=== PATIENT | female | born 1950 | race Caucasian/White ===

== ENCOUNTER → 2017-06-12 16:42 | Outpatient (CLI) | payer BC ==
[2012-01-30 10:15] VITALS: BMI 44.3
== END | disposition home or self-care (01) ==
LOC: D.LABREF 16:42
DX: M17.12 Unilateral primary osteoarthritis, left knee (principal); Z11.8 Encounter for screening for other infectious and parasitic diseases

== ENCOUNTER 2017-07-09 10:00 | Inpatient (IN) | payer MEDICARE, BC ==
[~2017-07-09 10:00] MED LIST: CELEXA20 MG PO; DETROL1 MG PO; DETROL2 MG PO; FUROSEMIDE20 MG PO; ZYRTEC10 MG PO
[2017-07-09] MEDS ORDERED: DETROL2 MG PO (11:08)
[2017-07-09 11:56] LABS: BASOPHILS 0.3 % (0-2); EOSINOPHILS 2.5 % (0-7); HEMATOCRIT 42.5 % (36.0-48.0); HEMOGLOBIN 14.1 g/dL (12-16); IMMATURE GRANULOCYTES 0.3 % (0-5); LYMPHOCYTES 25.8 % (15-50); MCH 30.9 pg (26.0-34.0); MCHC 33.2 g/dL (31.0-37.0); MEAN PLATELET VOLUME 11.1 fL (7.4-10.4); MONOCYTES 9.9 % (2-11); NEUTROPHILS 61.2 % (40-80); PLATELET COUNT 257 10x3/uL (130-400); RBC 4.57 10x6/uL (4.00-5.40); RDW 13.8 % (11.5-14.5); WBC 7.7 10x3/uL (4.8-10.8)
[2017-07-09 12:03] LABS: APPEARANCE CLEAR (CLEAR); BILIRUBIN NEGATIVE (NEGATIVE); COLOR YELLOW (YELLOW); GLUCOSE NEGATIVE (NEGATIVE); KETONE NEGATIVE (NEGATIVE); NITRITE NEGATIVE (NEGATIVE); PROTEIN NEGATIVE (NEGATIVE); UROBILINOGEN NORMAL (NORMAL)
[2017-07-09 12:07] LABS: BACTERIA FEW /hpf (NONE SEEN); WHITE CELLS - URINE OCC /hpf (0-5)
[2017-07-09 12:10] LABS: ANION GAP 10.1 mmol/L (8-16); CALCIUM 9.5 mg/dL (8.5-10.1); CARBON DIOXIDE 31.1 mmol/L (21.0-32.0); CREATININE - SERUM 0.9 mg/dL (0.6-1.3); POTASSIUM - SERUM 5.2 mmol/L (3.5-5.1)
[2017-07-09 12:18] LABS: APTT 28.2 SECONDS (22.8-39.4)
[2017-07-14] VITALS (12 sets, daily range): BP systolic 128–167; BP diastolic 33–77; BMI 41.7
--- NOTE | 2017-07-14 08:40 | NUR ---
PT HAS FRESH SCRATCH THAT SHE STATES SHE GOT FROM A BOX NOTED TO LEFT LOWER LEG. DR CAVAZOS AWARE.
--- NOTE | 2017-07-14 10:33 | NUR ---
RECEIVED VIA BED FROM PACU. AROUSES TO VERBAL STIMULATION. DRESSING TO LEFT KNEE DRY AND INTACT. VSS. DENIES NEEDS.
--- NOTE | 2017-07-14 12:30 | NUR ---
REFUSED LUNCH AT THIS TIME. AT BEDSIDE.
--- NOTE | 2017-07-14 14:49 | OP ---
PATIENT NAME: TONY LARSON MEDICAL RECORD: [id number] :52 LOCATION:[id number] ADMISSION DATE:07/14/17 SURGEON: RADHA CAVAZOS MD DATE OF OPERATION: 07/14/2017 PREOPERATIVE DIAGNOSIS: Degenerative arthritis, left knee. POSTOPERATIVE DIAGNOSIS: Degenerative arthritis, left knee. PROCEDURE: Left total knee arthroplasty. SURGEON: Radha Cavazos MD ANESTHESIA: General. INTRAOPERATIVE COMPLICATIONS: None. SUMMARY OF PATHOLOGIC FINDINGS: The patient had extensive tricompartmental osteoarthritis consistent with the preoperative diagnosis. IMPLANTS USED: Gabe triathlon total knee arthroplasty, size 4 femoral component, 9 polyethylene component, 4 tibial component, 31 patellar component. OPERATIVE SUMMARY IN DETAIL: After obtaining the appropriate preoperative orthopedic surgery consent as well as anesthetic consultation, evaluation and clearance, the patient was brought to the operating room and placed on the operating table in supine position. After adequate general anesthesia was administered, the patient's left lower extremity was prepared with a tourniquet about the proximal aspect of the left lower extremity and prepped and draped in routine sterile fashion. The leg was elevated and exsanguinated, tourniquet inflated to 350 mmHg. Midline incision was taken down for a paramedian arthrotomy. Patella was everted, distal femur was exposed. Soft tissue excision was done in the usual fashion. Distal intramedullary guide hole was created for distal intramedullary guide and cut. This was followed by a proximal tibial cut using intramedullary guidance likewise. Gap balancing system was then utilized both in flexion and extension. Appropriate measurements were taken. Distal femoral cuts and chamfer cuts were made followed by placement of the trial components corresponding to the above-mentioned final components. The knee was taken through range of motion and found to be stable in all planes. Final distal femoral and proximal tibial preparations were made followed by excision of the patellar surface for resurfacing. Final patellar preparations were made. This was followed by pulsatile lavage irrigation of the entire knee cavity. Final components were cemented into place. All excess cement was removed. After the cement was allowed to harden, the knee was taken through range of motion and found to be stable in all planes. Having completed this, further irrigation was then followed by closure of the paramedian arthrotomy with #2 Ethibond followed by #1 Vicryl, 2-0 Vicryl and skin elvira. Sterile dressings were applied. The patient was awakened, taken to recovery room in stable condition. All final needle and sponge counts were correct. TRANSINT:[id number] Voice Confirmation ID: [id number] DOCUMENT ID: [id number] OPERATIVE REPORT [id number] TONY LARSON MD, RADHA PROCTOR at 1449 CC: [id number] DICTATION DATE: 07/14/17926 TEACHER ADVISOR: 07/14/[address] [facility] [address] [place] [address]
--- NOTE | 2017-07-14 15:00 | NUR ---
RESTING QUIETLY WITH EYES CLOSED. AT BEDSIDE. DENIES NEEDS.
--- NOTE | 2017-07-14 17:00 | NUR ---
ASSISTED WITH BED DELANEY. VOIDED 200 PLUS CC OF CLEAR YELLOW URINE. SKIN CARE PER STAFF. REPOSITIONED IN BED FOR COMFORT.
--- NOTE | 2017-07-14 18:15 | NUR ---
CPM PLACED TO LEFT KNEE. DENIES NEEDS. SOME FACIAL GRIMACING NOTED. GIVEN ONE PERCOCET PO FOR PAIN LEVEL 4. WILL MONITOR.
--- NOTE | 2017-07-14 23:59 | NUR ---
2000)REC'D. IN BED ON CPM MACHINE.ACEWRAP DRSG DRY AND INTACT.FOOT PINK/WARM/PEDAL PULSE PRESENT WITH 1+ EDEMA AROUND ANKLE.WIGGLES TOES AND DORSIFLEXES WILL CONTINUE TO MONITOR FOR ANY CHGES IN NEUROVASCULAR STATUS AND FOLLOW CURRENT PLAN OF CARE.
[2017-07-15 04:00] VITALS: BP 152/6; BP 153/62
[2017-07-15 05:29] LABS: HEMATOCRIT 37.6 % (36.0-48.0); HEMOGLOBIN 12.2 g/dL (12-16); MCH 30.9 pg (26.0-34.0); MCHC 32.4 g/dL (31.0-37.0); MCV 95.2 fL (80.0-100.0); MEAN PLATELET VOLUME 11.3 fL (7.4-10.4); RBC 3.95 10x6/uL (4.00-5.40); WBC 13.1 10x3/uL (4.8-10.8)
--- NOTE | 2017-07-15 07:57 | NUR ---
AWAKE AND ALERT.ORIENTED X3. C/O INCREASED PAIN TO LEFT KNEE THIS AM. WILL CHECK ON PRN. LUNGS ARE CLEAR BIALTERALLY, NO COUGH NOTED.REPORTED USED IS INSTRUCTED DURING PM. SKIN IS INTACT WITHOUT REDNESS EXCEPT INCISION TO LEFT KNEE WHICH HAS A DRY INTACT DRESSING IN PLACE. ON CPM AT THIS TIME. ASSISTED WITH BED DELANEY PER STAFF. VOIDED 300 CC CLEAR YELLOW URINE. SKIN CARE PER STAFF.
--- NOTE | 2017-07-15 08:06 | NUR ---
REQUESTED AND GIVEN ONE HYDROCONDONE PO FOR C/O LEFT KNEE PAIN LEVEL 8. WILL MONITOR.
[2017-07-15 08:32] VITALS: BP 131/52
--- NOTE | 2017-07-15 09:43 | NUR ---
Rehab Prescreening Consult recieved and the chart has been reviewed. A single TKA is not a qualifying inpatient rehab diagnosis without medical necessity. She is POD#1. Rehab will follow her progress for qualifying criteria. Discussed with Isabela Hart RN Clinical Liaison, Rehab
--- NOTE | 2017-07-15 10:00 | NUR ---
UP IN CHAIR AT BEDSIDE. DENIES NEEDS.
[2017-07-15 11:33] VITALS: BP 153/49
--- NOTE | 2017-07-15 12:00 | NUR ---
UP IN CHAIR AT BEDSIDE EATING LUNCH. DENIES NEEDS.
--- NOTE | 2017-07-15 12:40 | NUR ---
UP TO BSC WITH ONE PERSON ASSIST USING RW. VOIDED 300CC CLEAR YELLOW URINE. SKIN CARE PER STAFF. ASSISTED TO CHAIR AT BEDSIDE WHEN FINISHED. REQUESTED AND GIVNE ONE PERCOCET PO FOR C/O LEFT KNEE PAIN LEVEL 8. WILL MONITOR.
[2017-07-15 15:08] VITALS: BP 142/54
--- NOTE | 2017-07-15 15:14 | NUR ---
BACK TO BED PER PT. SISTER AT BEDSIDE. REPORTS PAIN EASED WITH USE OF PERCOCET. DENIES NEEDS.
--- NOTE | 2017-07-15 19:56 | NUR ---
ATE MOST OF SUPPER. RESTING QUIETLY DENIES NEEDS.
[2017-07-15 20:00] VITALS: BP 141/41
--- NOTE | 2017-07-15 22:25 | NUR ---
REC'D. IN CPM EYES CLOSED RESP. DEEP AND EVEN.ACEWRAP DRY AND INTACT TO LEFT LEG.IN CPM.WILL CONTINUE TO MONITOR FOR ANY CHGES. IN NEUROVASCULAR STATUS AND FOLLOW CURRENT PLAN OF CARE.
[2017-07-16] VITALS: BP 148/50
--- NOTE | 2017-07-16 04:59 | NUR ---
PATIENT RESTING IN BED WITH EYES CLOSED AND GUEST AT BEDSIDE. NO VISIBLE SIGNS OF DISTRESS. BED IN LOWEST POSITION AND CALL LIGHT WITHIN REACH.
[2017-07-16 05:11] LABS: HEMATOCRIT 36.8 % (36.0-48.0); HEMOGLOBIN 11.9 g/dL (12-16); MCH 30.6 pg (26.0-34.0); MCHC 32.3 g/dL (31.0-37.0); MCV 94.6 fL (80.0-100.0); MEAN PLATELET VOLUME 11.4 fL (7.4-10.4); RBC 3.89 10x6/uL (4.00-5.40); RDW 14.4 % (11.5-14.5); WBC 14.3 10x3/uL (4.8-10.8)
--- NOTE | 2017-07-16 07:45 | NUR ---
CPM ON AT THIS TIME AND OXYGEN ON 2L VIA NC. SPOUSE AT BEDSIDE. RESPIRATIONS EVEN AND NON LABORED. CALL LIGHT IN REACH, BED IN LOWEST POSITION WITH WHEELS LOCKED. WILL CONTINUE WITH PLAN OF CARE.
[2017-07-16 08:53] VITALS: BP 145/58
--- NOTE | 2017-07-16 09:13 | NUR ---
SCHEDULED MEDICATIONS ADMINISTERED AT THIS TIME. DENIES NEED FOR PAIN MEDICATION. BED ALARM ON AND CALL LIGHT IN REACH, WILL CONTINUE WITH PLAN OF CARE.
[2017-07-16 12:17] VITALS: BP 159/56
--- NOTE | 2017-07-16 13:04 | NUR ---
Patient Name: TONY LARSON Admission Status: Elective Accout number: [id number] Admission Date: 07-14-2017 : 1950 Admission Diagnosis: Attending: RADHA CAVAZOS Current LOS: 2 Anticipated DC Date: Planned Disposition: Home Primary Insurance: MEDICARE A & B Discharge Planning Comments: CM met with patient to assess discharge planning needs. Patient lives independently at home with her (Florentino)who will be the one to drive her home at discharge. Patient has a CPAP, shower chair, and walker at home. Discharge plan is to D/C home with outpatient pt at [facility]. CM will set that us before discharge. Pt will also need a CPM machine before discharge, CM will also set that up. Patient said that she has one step to enter in her home. CM will continue to assess with discharge planning needs. PCP: Belén Mireles Florentino () [phone] Tower Operator: Kalee Yusuf * Is the patient Alert and Oriented? Yes 0 * How many steps to enter\exit or inside your home? 1 0 * PCP Zachary [place] 0 * Pharmacy [facility] [place] 0 * Preadmission Environment Home with Family 0 * ADLs Independent 0 * Equipment CPAP Shower Chair Walker 0 * List name and contact numbers for known caregivers / representatives who currently or will assist patient after discharge: florentino () [phone] 0 * Community resources currently utilized None 0 * Additional services required to return to the preadmission environment? Yes 0 * Can the patient safely return to the preadmission environment? Yes 0 * Has this patient been hospitalized within the prior 30 days at any hospital? No 0 Grand Total: 0
--- NOTE | 2017-07-16 14:30 | NUR ---
UP TO AMBULATE AT THIS TIME. LEFT BUTTOCK NOTED TO HAVE SORES, MEPILEX LITE DRESSING PLACED OVER SITE AND SKIN ASSESSMENT UPDATED.
--- NOTE | 2017-07-16 16:03 | NUR ---
CONTINUES TO DENY NEED FOR PAIN MEDICATION. ICE PACK APPLIED TO LEFT KNEE.
[2017-07-16 17:12] VITALS: BP 115/67
--- NOTE | 2017-07-16 17:26 | NUR ---
PRN PERCOCET ADMINISTERED AT THIS TIME FOR PAIN IN ANTICIPATION FOR CPM APPLICATION.
--- NOTE | 2017-07-16 18:00 | NUR ---
CPM APPLIED AT THIS TIME.
[2017-07-16 20:00] VITALS: BP 143/44
--- NOTE | 2017-07-16 20:01 | NUR ---
REC'D. IN BED IN CPM MACHINE.ACEWRAP DRSG. DRY AND INTACT FOOT PINK AND WARM/PEDAL PULSE PRESENT/WIGGLES TOES/DORSIFLEXES DENIES CALF PAIN OR TENDERNESS.WILL CONTINUE TO MONITOR FOR ANY CGES. NEUROVASCULAR STATUS AND FOLLOW CURRENT PLAN OF CARE
[2017-07-17] VITALS: BP 124/54
--- NOTE | 2017-07-17 01:18 | NUR ---
PATIENT IS AWAKE, ALERT AND ORIENTED X'S 4. RESPIRATIONS ARE EVEN AND UNLABORED. PATIENT DENIES NEEDS. IN RECLINER, HE DENIES NEEDS. BED IS IN LOWEST POSITION, CALL LIGHT IN REACH. BED RIALS UP X'S 2.
[2017-07-17 04:00] VITALS: BP 142/63
--- NOTE | 2017-07-17 07:35 | NUR ---
CPM ON AT THIS TIME. OXYGEN ON 2L VIA NC. AT BEDSIDE. BED ALARM AND SCD'S ON. RESPIRATIONS EVEN AND NON LABORED. CALL LIGHT IN REACH, WILL CONTINUE WITH PLAN OF CARE.
[2017-07-17] MEDS ORDERED: ELIQUIS2.5 MG PO (07:56)
[2017-07-17] MEDS ORDERED: PERCOCET 10/3251 TA1 PO (07:57)
[2017-07-17 08:33] VITALS: BP 146/65
--- NOTE | 2017-07-17 09:47 | NUR ---
PATIENT BEING DISCHARGED HOME TODAY WITH OP PT SCHEDULED FOR FridayJUL 21 AT 8:30 AT [facility]. CPM MACHINE BEING DELIVERED TO HOSPITAL FROM [facility]. PATIENT HAS WALKER AND SHOWER CHAIR AT HOME. NO OTHER NEEDS STATED WILL BE THE ONE TO DRIVE HER HOME
--- NOTE | 2017-07-17 10:00 | NUR ---
DRESSING TO LEFT KNEE CHANGED PER ORDER. INSTRUCTED PT AND ON PROPER TECHNIQUE. IV TO LEFT HAND D/C WITH CATH TIP INTACT.
--- NOTE | 2017-07-17 11:34 | NUR ---
FLU SHOT ADMINISTERED TO LEFT DELTOID. INFORMATION SHEET GIVEN TO PT.
--- NOTE | 2017-07-17 15:28 | NUR ---
DISHCARGE PAPERWORK REVIEWED. PT D/C HOME WITH SPOUSE AT THIS TIME. DENIES QUESTIONS OR CONCERNS.
[2017-08-20] MEDS ORDERED: BACTRIM DS TABL1 TAB PO (16:00)
== END 2017-07-17 15:28 | disposition home or self-care (01) | DRG 470 ==
LOC: D.SDCHOLD 07-14 05:15 → D.MS 07-14 05:15 → D.SDCHOLD 07-14 07:30 → D.MS 07-14 10:08
PROVIDERS: Anesthesiology; ADMIT Orthopaedic Surgery
PROC: 0SRD0J9 Replacement of Left Knee Joint with Synthetic Substitute, Cemented, Open Approach (ICD-10-PCS; principal; 2017-07-14 07:30)
DX: M17.12 Unilateral primary osteoarthritis, left knee (principal); L93.0 Discoid lupus erythematosus

== ENCOUNTER 2017-08-25 14:00 | Day surgery (SDC) | payer MEDICARE, BC ==
[~2017-08-25] VITALS: Ht 160 cm; Wt 106.6 kg
[~2017-08-25 14:00] MED LIST changes: +BACTRIM DS TABL1 TAB PO; +ELIQUIS2.5 MG PO; +PERCOCET 10/3251 TA1 PO
[2017-08-25 14:35] LABS: BASOPHILS 0.6 % (0-2); EOSINOPHILS 3.4 % (0-7); HEMATOCRIT 39.7 % (36.0-48.0); HEMOGLOBIN 12.8 g/dL (12-16); IMMATURE GRANULOCYTES 0.2 % (0-5); LYMPHOCYTES 31.2 % (15-50); MCH 29.6 pg (26.0-34.0); MCHC 32.2 g/dL (31.0-37.0); MCV 91.9 fL (80.0-100.0); MEAN PLATELET VOLUME 10.5 fL (7.4-10.4); MONOCYTES 12.2 % (2-11); NEUTROPHILS 52.4 % (40-80); PLATELET COUNT 279 10x3/uL (130-400); RBC 4.32 10x6/uL (4.00-5.40); RDW 14.7 % (11.5-14.5); WBC 6.3 10x3/uL (4.8-10.8)
[2017-08-25 14:42] VITALS: BP 144/62; Ht 160 cm; Wt 106.6 kg
[2017-08-25 15:03] LABS: ANION GAP 15.9 mmol/L (8-16); CALCIUM 8.9 mg/dL (8.5-10.1); CARBON DIOXIDE 23.8 mmol/L (21.0-32.0); POTASSIUM - SERUM 3.7 mmol/L (3.5-5.1)
[2017-08-25] MEDS ORDERED: PERCOCET 10/3251 TA1 PO (20:43)
--- NOTE | 2017-08-25 21:10 | NUR ---
REC'D PATIENT FROM RECOVERY WITH NO VISIBLE SIGNS OF DISTRESS. BED IN LOWEST POSITION AND CALL LIGHT WITHIN REACH. ENCOURAGED THE PATIENT TO CALL IF SHE HAS NEEDS.
--- NOTE | 2017-08-25 23:54 | NUR ---
PATIENT ATE, DRANK, AND VOIDED WITHOUT DIFFICULTY. TOOK PATIENT VIA WHEELCHAIR OUT THE ER WHERE HER WAS WAITING.
--- NOTE | 2017-09-18 14:06 | OP ---
PATIENT NAME: TONY LARSON MEDICAL RECORD: [id number] :52 LOCATION:[facility] ADMISSION DATE: SURGEON: RADHA CAVAZOS MD DATE OF OPERATION: 08/25/2017 PREOPERATIVE DIAGNOSIS: Open wound of the left knee. POSTOPERATIVE DIAGNOSIS: Open wound of the left knee. PROCEDURE: Excisional debridement of the open wound of the left knee with application of Neox graft. SURGEON: Radha Cavazos MD ANESTHESIA: General. INTRAOPERATIVE COMPLICATIONS: None. SUMMARY OF PATHOLOGIC FINDINGS: Essentially none. OPERATIVE SUMMARY IN DETAIL: After obtaining the appropriate preoperative orthopedic surgery consent as well as anesthetic consultation, evaluation, and clearance, the patient was brought to the operating room and placed on the operating table in supine position. After adequate general laryngeal mask airway was administered, the patient's left lower extremity was prepped and draped in routine sterile fashion. A combination of scalpel, rongeur as well as curettage debridement was used to take out all appearing tissue. This was followed by copious irrigation. When the bleeding bone that had been established, slight undermining was done to sewn in 4 x 3 Neox graft using 3-0 Monocryl. Having completed this, sterile dressings were applied. The patient was awakened and taken to recovery in stable condition. All final needle and sponge counts were correct. TRANSINT:[id number] Voice Confirmation ID: [id number] DOCUMENT ID: [id number] MACY MANRIQUEZ, RADHA PROCTOR at 1406 CC: [id number] DICTATION DATE: 09/15/17 1523 TELLER MANAGER: 09/15/17 1620 [facility] 08/25/[address] [address]
== END 2017-08-25 23:52 | disposition home or self-care (01) ==
LOC: D.OPS 14:00 → D.PAN 16:00 → D.OPS 16:00 → D.PAN 19:15 → D.OPS 19:15 → D.MS 21:00 → D.OPS 23:52
PROVIDERS: Anesthesiology
DX: S81.002A Unspecified open wound, left knee, initial encounter (principal); G47.30 Sleep apnea, unspecified; E66.01 Morbid (severe) obesity due to excess calories; Z68.41 Body mass index [BMI] 40.0-44.9, adult; Z01.812 Encounter for preprocedural laboratory examination

== ENCOUNTER → 2017-10-02 17:23 | Outpatient (CLI) | payer MEDICARE, BC ==
[2017-08-25 14:42] VITALS: BMI 41.7
== END | disposition home or self-care (01) ==
LOC: D.LABREF 17:23
DX: S81.002A Unspecified open wound, left knee, initial encounter (principal); X58.XXXA Exposure to other specified factors, initial encounter; Y93.89 Activity, other specified; Y92.89 Other specified places as the place of occurrence of the external cause